=== PATIENT | female | born 1965 | race Caucasian/White ===

== ENCOUNTER 2016-06-21 17:55 | Emergency (ER) | payer OTHER ==
[~2016-06-21 17:55] MED LIST: ALBUTEROL0.09 MG/A1 INH; CLONIDINE0.1 MG PO; CRESTOR5 M1 PO; DOXYCYCLINE HY100 M2 PO; HYDROCORTISONE2.51 TOP; IBUPROFEN800 M1 PO; KEFLEX500 M1 PO; METFORMIN HCL500 M3 PO; OXYCODONE HCL15 M1 PO; PREDNISONE20 M1 PO; PREDNISONE50 MG PO; PRINIVIL5 M1 PO; TESSALON PERLE100 MG PO; TORADOL10 MG PO; VALIUM5 M1 PO; VALIUM5 M2 PO; VISTARIL50 MG PO; ZITHROMAX Z-PA250 M1 PO; ZOFRAN ODT4 MG PO
[2016-06-21 19:52] LABS: ABSOLUTE BASOPHIL COUNT 0 /CUMM (0.0-0.2); ABSOLUTE EOSINOPHIL COUNT 0.1 /CUMM (0.0-0.7); ABSOLUTE GRANULOCYTE CT 4.6 /CUMM (1.4-6.5); ABSOLUTE LYMPH COUNT 2.5 /CUMM (1.2-3.4); ABSOLUTE MONOCYTE COUNT 0.3 /CUMM (0.10-0.60); BASOPHIL % 0.1 % (0.0-2.0); EOSINOPHIL % 0.7 % (0-5); GRANULOCYTE % 61.8 % (42.2-75.2); HEMATOCRIT 43.2 % (37-47); MEAN CORPUSCULAR HGB 28.5 PG (27.0-31.0); MEAN CORPUSCULAR HGB CONC 33.1 G/DL (33.0-37.0); MEAN CORPUSCULAR VOLUME 86.2 FL (81.0-99.0); MEAN PLATELET VOLUME 9.1 FL (7.4-10.4); PLATELET COUNT 269 /CUMM (130-400); RBC DISTRIBUTION WIDTH 13.6 % (11.5-14.5); RED BLOOD CELL CT 5.01 /CUMM (4.20-5.40); WHITE BLOOD CELL COUNT 7.5 /CUMM (4.8-10.8)
--- NOTE | 2016-06-21 20:40 | CT SCAN REPORT ---
EXAMINATION: CT ABDOMEN AND PELVIS WITHOUT CONTRAST CLINICAL INFORMATION: Small bowel obstruction COMPARISON: CT scan abdomen pelvis 03/03/2013 TECHNIQUE: Multidetector volumetric imaging was performed from the superior aspect of the liver through the pubic symphysis. Sagittal and coronal reformatted images were obtained on the technologist's workstation. No oral or intravenous contrast DLP: 318.23 mGy-cm FINDINGS: LUNG BASES: Linear scarring at lung bases. No infiltrate or pleural effusion. LIVER, GALLBLADDER, AND BILIARY TREE: The liver is normal in size, shape, and attenuation. No focal hepatic lesion or biliary ductal dilatation is present. There are a few tiny gallstones layering dependently in the gallbladder. No gallbladder wall thickening. No dilatation of the biliary tree. PANCREAS: Unremarkable. SPLEEN: Unremarkable. ADRENAL GLANDS: Unremarkable. KIDNEYS AND URETERS: The kidneys are normal in size, shape, and attenuation. No hydronephrosis, hydroureter, or calculi seen. No perinephric stranding. BLADDER: Unremarkable. GASTROINTESTINAL TRACT: No acute change of the bowel. No bowel obstruction. No bowel wall thickening or edema. Moderate to large volume of scattered stool throughout the colon. The appendix is normal. The small bowel loops are unremarkable. MESENTERY: No inflammation. No free air or free fluid. There are surgical clips in the anterior midabdomen. ABDOMINAL WALL: No significant hernia is appreciated. LYMPH NODES: Normal. VASCULAR: Unremarkable. PELVIC VISCERA: Unremarkable. OSSEOUS STRUCTURES: Neural stimulator probe extending to lower thoracic central spinal canal passing through the subcutaneous tissue to the anterior left anterior abdominal wall. Multilevel degenerative change of the spine with disc height narrowing including vacuum disc L4-L5 L5-S1, and facet joint arthrosis IMPRESSION: No acute abnormality CT scan abdomen pelvis. No bowel obstruction. No acute change of the bowel wall. Moderate to large-volume of stool in colon. Normal appendix.
--- NOTE | 2016-06-21 20:50 | ED GI/GU/ABDOMINAL COMPLAINT ---
History of Present Illness General Chief Complaint: Abdominal Pain/Flank Pain Stated Complaint: ABD PAIN X "MONTHS" Source: patient, family, old records Exam Limitations: no limitations Vital Signs & Intake/Output Vital Signs & Intake/Output Vital Signs Date Time Temp Pulse Resp B/P Pulse O2 O2 Flow FiO2 Ox Delivery Rate 06/21 2109 78 20 142/80 97 Room Air 06/21 1832 98.5 110 16 150/88 93 Room Air Allergies Coded Allergies: grass pollen (Intermediate, DIFFICULTY BREATHING 07/23/15) tree nut (Intermediate, RASH 07/23/15) Penicillins (UNKNOWN 07/23/15) codeine (UNKNOWN 07/23/15) mold (UNKNOWN 07/23/15) Reconcile Medications Hyoscyamine Sulfate (Levsin-Sl) 0.125 MG TAB.SUBL 1-2 TAB SL Q4P PRN ABDOMINAL CRAMPS Metformin HCl (Unknown Strength) TABLET (Unknown Dose) PO BID DIABETES ( Reported) Oxycodone HCl 15 MG TABLET 1 TAB PO TIDPRN PRN PAIN (Reported) Rosuvastatin Calcium (Crestor) (Unknown Strength) TABLET (Unknown Dose) PO DAILY HEART (Reported) Sennosides/Docusate Sodium (Senokot-S Tablet) 8.6 MG-50 MG TABLET 1 TAB PO BID PRN CONSTIPATION Triage Note: TRIAGE; PT TO ED C/O ABD PAIN. STATES SHE WAS HERE A MONTH AGO AND ADMITTED FOR ABD PAIN. STATES SHE HAS NOT FELT BETTER SINCE THE LAST TIME SHE WAS HERE. IS ON PAIN MEDS AT HOME BUT SHE STATES SHE BELIEVES THEY ARE NOT AFFECTING HER AND HER BOWEL MOVEMENTS. PT HAS NOT BEEN FOLLOWING UP WITH DOCTORS. LAST BM X3 WEEKS AGO. Triage Nurses Notes Reviewed? yes LMP (ages 10-50): post menopausal ? n Is pt currently ? No Onset: 3 weeks Duration: week(s):, constant, continues in ED Timing: recent history Quality/Severity: fullness, severe Location: generalized abdomen Radiation: no radiation Activities at Onset: none Prior Abdominal Problems: similar symptoms Past Sexual History: Unobtainable at this time Modifying Factors: Worsens With: eating, palpation. Associated Symptoms: abdominal pain, loss of appetite HPI: 3 weeks prior to admission patient reports moving her bowels and has not since. She complains of abdominal fullness severe pain decreased appetite. She has fever chills nausea vomiting diarrhea chest pain cough shortness of breath headache dysuria rash bleeding. Past History Travel History Traveled to [place] past 21 day No Medical History Any Pertinent Medical History? 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 No Review of Systems Review of Systems Constitutional: Reports: no symptoms. EENTM: Reports: no symptoms. Respiratory: Reports: no symptoms. Cardiovascular: Reports: no symptoms. GI: Reports: see HPI, abdominal pain, bloating, constipation. Genitourinary: Reports: no symptoms. Musculoskeletal: Reports: no symptoms. Skin: Reports: no symptoms. Neurological/Psychological: Reports: no symptoms. Hematologic/Endocrine: Reports: no symptoms. Immunologic/Allergic: Reports: no symptoms. All Other Systems: Reviewed and Negative Physical Exam Physical Exam General Appearance: well developed/nourished, alert, awake, anxious, moderate distress, obese Head: atraumatic, normal appearance Eyes: Bilateral: normal appearance, PERRL, EOMI, normal inspection. Ears, Nose, Throat, Mouth: hearing grossly normal, moist mucous membrane Neck: normal inspection, supple, full range of motion, normal alignment Respiratory: normal breath sounds, chest non-tender, no respiratory distress, quiet respiration, lungs clear Cardiovascular: regular rate/rhythm, normal peripheral pulses, norml femoral pulses equa Peripheral Pulses: 4+ carotid (R), 4+ carotid (L) Gastrointestinal: soft, no organomegaly, abnormal bowel sounds, distention, tenderness Back: normal inspection, normal range of motion Extremities: normal range of motion, no ligament instability Neurologic/Psych: no motor/sensory deficits, awake, alert, oriented x 3, normal gait, normal mood/affect, 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 No Severe Sepsis Present: No Septic Shock Present: No Progress Differential Diagnosis: bowel obstruction, pancreatitis, SBO Plan of Care: Orders Procedure Date/time Status COMPREHENSIVE METABOLIC PANEL 06/21 1925 Complete CBC WITHOUT DIFFERENTIAL 06/21 1925 Complete Laboratory Tests 06/21/161942: Anion Gap 15, Estimated GFR > 60, BUN/Creatinine Ratio 16.0, Glucose 90, Calcium 10.8 H, Total Bilirubin 0.7, AST 29, ALT 47, Alkaline Phosphatase 138 H, Total Protein 8.4 H, Albumin 5.0, Globulin 3.4, Albumin/Globulin Ratio 1.5, CBC w Diff NO MAN DIFF REQ, RBC 5.01, MCV 86.2, MCH 28.5, RDW 13.6, MPV 9.1, Gran % 61.8, Lymphocytes % 33.8, Monocytes % 3.6, Eosinophils % 0.7, Basophils % 0.1, Absolute Granulocytes 4.6, Absolute Lymphocytes 2.5, Absolute Monocytes 0.3, Absolute Eosinophils 0.1, Absolute Basophils 0, PUBS MCHC 33.1 06/21/161925: Urine Color Cancelled, Urine Clarity Cancelled, Urine pH Cancelled, Ur Specific [place] Cancelled, Urine Protein Cancelled, Urine Ketones Cancelled, Urine Nitrite Cancelled, Urine Bilirubin Cancelled, Urine Urobilinogen Cancelled, Ur Leukocyte Esterase Cancelled, Ur Microscopic Cancelled, Urine Hemoglobin Cancelled, Urine Glucose Cancelled Diagnostic Imaging: Viewed by Me: CT Scan. Discussed w/RAD: CT Scan. Radiology Impression: no acute abnormality Initial ED EKG: none Departure Departure Time of Disposition: 2119 Disposition: HOME OR SELF CARE Condition: Stable Clinical Impression Primary Impression: Obstipation Referrals: ONEAL FELIX (PCP/Family) Departure Forms: Customer Survey General Discharge Information Prescriptions: Current Visit Scripts Sennosides/Docusate Sodium (Senokot-S Tablet) 1 TAB PO BID PRN CONSTIPATION #60 TAB Hyoscyamine Sulfate (Levsin-Sl) 1-2 TAB SL Q4P PRN ABDOMINAL CRAMPS #60 TAB
[2016-06-21 21:10] VITALS: BP 142/80
[2016-06-21] MEDS ORDERED: SENOKOT-S TABL1 EACH PO (21:24)
[2016-06-21] MEDS ORDERED: LEVSIN-SL0.125 MG SL (21:24)
== END 2016-06-21 21:31 ==
LOC: ERH 17:55
PROVIDERS: Emergency Medicine
DX: K59.00 Constipation, unspecified (principal)
CPT/HCPCS: 74176; 96360; 96372

== ENCOUNTER 2016-08-07 12:45 | Emergency (ER) | payer OTHER ==
[~2016-08-07] VITALS: Ht 144.8 cm; Wt 59.0 kg
[~2016-08-07 12:45] MED LIST changes: +LEVSIN-SL0.125 MG SL; +SENOKOT-S TABL1 EACH PO
--- NOTE | 2016-08-07 13:06 | ED SKIN/ALLERGY COMPLAINT ---
History of Present Illness General Chief Complaint: Lower Extremity Problems Stated Complaint: LEFT LEG AND FOOT PAIN AND SWELLING Source: patient Exam Limitations: no limitations Vital Signs & Intake/Output Vital Signs & Intake/Output Vital Signs Date Time Temp Pulse Resp B/P B/P Pulse O2 O2 Flow FiO2 Mean Ox Delivery Rate 08/07 1459 98.1 92 20 125/81 93 Room Air 08/07 1250 98.0 103 20 153/89 94 Room Air Allergies Coded Allergies: grass pollen (Intermediate, DIFFICULTY BREATHING 07/23/15) tree nut (Intermediate, RASH 07/23/15) Penicillins (HIVES ITCHY 08/07/16) codeine (ITCHY 08/07/16) mold (UNKNOWN 07/23/15) Reconcile Medications Aspirin (Ecotrin*) 81 MG TABLET.DR 1 TAB PO DAILY HEART/BLOOD (Reported) Clindamycin HCl (Cleocin HCl) 300 MG CAPSULE 1 CAP PO TID cellulitis Diazepam 10 MG TABLET 1 TAB PO BID TREMORS IN LEG (Reported) Hyoscyamine Sulfate (Levsin-Sl) 0.125 MG TAB.SUBL 1-2 TAB SL Q4P PRN ABDOMINAL CRAMPS Lisinopril 10 MG TABLET 1 TAB PO DAILY BP (Reported) Metformin HCl (Unknown Strength) TABLET (Unknown Dose) PO BID DIABETES ( Reported) Oxycodone HCl 15 MG TABLET 1 TAB PO TIDPRN PRN PAIN (Reported) Oxycodone HCl (Oxycontin) 15 MG TAB.ER.12H 1 TAB PO TID PAIN (Reported) Rosuvastatin Calcium (Crestor) (Unknown Strength) TABLET (Unknown Dose) PO DAILY CHOLESTEROL (Reported) Sennosides/Docusate Sodium (Senokot-S Tablet) 8.6 MG-50 MG TABLET 1 TAB PO BID PRN CONSTIPATION Triage Note: PT TO ED C/O LEFT LEG PAIN AND SWELLING. NOTICED YESTERDAY. LEFT LEG NOTICABLY SWOLLEN, PINK AND WARM TO TOUCH. AFEBRILE. Triage Nurses Notes Reviewed? yes Onset: Abrupt Duration: day(s): (few), constant, continues in ED Timing: recent history Severity: moderate, severe No Modifying Factors: none HPI: 50-year-old female comes into emergency room for further evaluation of pain and redness and swelling to his left lower leg. Symptoms of been going on for the past few days. Sharp throbbing pain. Continuous. Nonradiating. Denies any other associated symptoms or trauma. Nothing seems to make the symptoms better or worse. Past History Travel History Traveled to [place] past 21 day No Medical History Any Pertinent Medical History? 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 No Review of Systems Review of Systems Constitutional: Reports: no symptoms. EENTM: Reports: no symptoms. Respiratory: Reports: no symptoms. Cardiovascular: Reports: no symptoms. GI: Reports: no symptoms. Genitourinary: Reports: no symptoms. Musculoskeletal: Reports: see HPI. Skin: Reports: see HPI. Neurological/Psychological: Reports: no symptoms. Hematologic/Endocrine: Reports: no symptoms. Immunologic/Allergic: Reports: no symptoms. All Other Systems: Reviewed and Negative Physical Exam Physical Exam General Appearance: well developed/nourished, mild distress Head: atraumatic Eyes: Bilateral: normal appearance, EOMI. Ears, Nose, Throat: normal ENT inspection, hearing grossly normal Neck: normal inspection Respiratory: no respiratory distress Back: normal inspection Extremities: no edema, swelling to left lower leg, erythema, warmth,patchy, dorsalis pedis 2+ Neurologic/Psych: awake, alert, oriented x 3, normal mood/affect Skin: intact, rash (see above) Skin Problem Location: lower extremities Lymphatic: no anterior cervical frank Progress Differential Diagnosis: abscess/cellulitis, allergic reaction, anaphylaxis, asthma, contact dermatitis, shingles, urticaria Plan of Care: Orders Procedure Date/time Status LACTIC ACID 08/07 UNK Active LACTIC ACID 08/07 1605 Complete BLOOD CULTURE 08/07 1305 Active COMPREHENSIVE METABOLIC PANEL 08/07 1305 Complete CBC WITHOUT DIFFERENTIAL 08/07 1305 Complete Laboratory Tests 08/07/16 1430: Lactic Acid 1.4 08/07/16 1325: Anion Gap 13, Estimated GFR > 60, BUN/Creatinine Ratio 12.0, Glucose 89, Calcium 9.8, Total Bilirubin 0.6, AST 48 H, ALT 56 H, Alkaline Phosphatase 114, Total Protein 6.9, Albumin 4.3, Globulin 2.6, Albumin/Globulin Ratio 1.7, CBC w Diff NO MAN DIFF REQ, RBC 4.40, MCV 86.3, MCH 28.8, RDW 13.8, MPV 9.5, Gran % 59.8, Lymphocytes % 31.6, Monocytes % 6.5, Eosinophils % 1.0, Basophils % 1.1, Absolute Granulocytes 3.8, Absolute Lymphocytes 2.0, Absolute Monocytes 0.4, Absolute Eosinophils 0.1, Absolute Basophils 0.1, PUBS MCHC 33.4 Microbiology 08/07 1515 BLOOD: Blood Culture - RECD 08/07 1325 BLOOD: Blood Culture - RECD Diagnostic Imaging: Viewed by Me: Ultrasound. Discussed w/RAD: Ultrasound. Radiology Impression: SERVICE DATE: 08/07/16 EXAM TYPE: US - US- UNILATERAL VENOUS DOPPLER EXAMINATION: US TRIPLEX LOWER EXTREMITY, LEFT CLINICAL INFORMATION: Swelling, pain COMPARISON: None TECHNIQUE: Color-flow triplex imaging with spectral analysis and compression Doppler were performed on the left lower extremity. FINDINGS: Respiratory variation, normal compression and augmented flow are noted throughout the lower extremity. The visualized common femoral vein, superficial femoral vein, profunda femoral vein, popliteal vein and midcalf peroneal and posterior tibial venous segments show no evidence of deep venous thrombosis. There is no Timmons's cyst. IMPRESSION: Normal triplex scan without evidence of deep venous thrombosis involving the lower extremity. DICTATED BY: ANNETTE LUGO MD DATE/TIME DICTATED:08/07/161432 [employer] SUPERVISOR:SOLA DATE/TIME TRANSCRIBED:08/07/161432 Departure Departure Disposition: HOME OR SELF CARE Condition: Stable Clinical Impression Primary Impression: Cellulitis of left leg Referrals: ONEAL FELIX (PCP/Family) Additional Instructions: take clindamycin as prescribed. Return in 2 days for wound recheck. Return sooner if any other concerns worsening symptoms. Return if any spreading of redness, fever, flulike symptoms. Elevate your left leg heart level. Please go over all results of today's visit with your primary care doctor. Contact your primary care doctor to let them know you were here in the emergency room. There may be nonspecific findings which may not be related to your visit today here in the emergency room but may require further evaluation and chronic monitoring by your primary care doctor. If you had a laceration today the chance of foreign body always remains. You should follow-up with your primary care doctor for recheck in 3-5 days for a wound check. If you had an x-ray done there is a chance that a fracture could have been missed on initial read and you should follow-up with your primary care doctor for repeat x-rays if symptoms persist. If your blood pressure was elevated here in the emergency room please have rechecked by her primary care doctor within the next 48 hours by your primary care doctor. If you were prescribed a narcotic here in the emergency room or any type of controlled substances you're not allowed to drive while taking this medication or operate any type of heavy machinery. Narcotics can make you feel lightheaded dizziness nausea and can cause constipation. You may need to slat pickler a stool softener. Thank you for choosing [facility] emergency room. Please return to the emergency room immediately if you have any other concerns worsening of symptoms. Departure Forms: Customer Survey General Discharge Information Prescriptions: Current Visit Scripts Clindamycin HCl (Cleocin HCl) 1 CAP PO TID #30 CAP Comments 08/07/2016 4:24:50 PM Patient clinically looks well. Patient is nontoxic-appearing. Patient has no white count. Afebrile. Patient has cellulitis of left lower leg. Patient started on oral antibiotics and told to return for a wound check in 2 days. Patient understands and agrees with plan of care. Patient was reevaluated multiple times. Return if any other concerns worsening symptoms. Patient understands and agrees with plan of care. Patient was educated on worsening
[2016-08-07 13:43] LABS: ABSOLUTE BASOPHIL COUNT 0.1 /CUMM (0.0-0.2); ABSOLUTE EOSINOPHIL COUNT 0.1 /CUMM (0.0-0.7); ABSOLUTE GRANULOCYTE CT 3.8 /CUMM (1.4-6.5); ABSOLUTE MONOCYTE COUNT 0.4 /CUMM (0.10-0.60); BASOPHIL % 1.1 % (0.0-2.0); GRANULOCYTE % 59.8 % (42.2-75.2); MEAN CORPUSCULAR HGB 28.8 PG (27.0-31.0); MEAN CORPUSCULAR HGB CONC 33.4 G/DL (33.0-37.0); MEAN CORPUSCULAR VOLUME 86.3 FL (81.0-99.0); MEAN PLATELET VOLUME 9.5 FL (7.4-10.4); PLATELET COUNT 237 /CUMM (130-400); RBC DISTRIBUTION WIDTH 13.8 % (11.5-14.5); WHITE BLOOD CELL COUNT 6.4 /CUMM (4.8-10.8)
--- NOTE | 2016-08-07 14:37 | ULTRASOUND REPORT ---
EXAMINATION: US TRIPLEX LOWER EXTREMITY, LEFT CLINICAL INFORMATION: Swelling, pain COMPARISON: None TECHNIQUE: Color-flow triplex imaging with spectral analysis and compression Doppler were performed on the left lower extremity. FINDINGS: Respiratory variation, normal compression and augmented flow are noted throughout the lower extremity. The visualized common femoral vein, superficial femoral vein, profunda femoral vein, popliteal vein and midcalf peroneal and posterior tibial venous segments show no evidence of deep venous thrombosis. There is no Timmons's cyst. IMPRESSION: Normal triplex scan without evidence of deep venous thrombosis involving the lower extremity.
[2016-08-07 14:59] VITALS: BP 125/81
[2016-08-07] MEDS ORDERED: OXYCONTIN15 M1 PO (15:25)
[2016-08-07] MEDS ORDERED: DIAZEPAM10 M1 PO (15:26)
[2016-08-07] MEDS ORDERED: LISINOPRIL10 M1 PO (15:26)
[2016-08-07] MEDS ORDERED: ASPIRIN EC81 M1 PO (15:27)
[2016-08-07] MEDS ORDERED: CLEOCIN HCL300 M1 PO (15:31)
== END 2016-08-07 16:13 ==
LOC: ERH 12:45
PROVIDERS: Physician Assistant Medical
DX: L03.116 Cellulitis of left lower limb (principal)
CPT/HCPCS: 87040; 96374; J3360